=== PATIENT | male | born 1945 | race Caucasian/White ===

== ENCOUNTER → 2017-11-12 | Outpatient (CLI) | payer MEDICARE, OTHER ==
[~2017-11-12] MED LIST: ASP325TEC PO; ASP81CT PO; ASPI-9 PO; ATRV10T PO; CEFU500T5 PO; DIGO0.25 PO; ENAL2.5T PO; FOLI0.4T2 PO; GLUC-136 PO; GLUC-138 PO; LOSA25TA5 PO; LVT.05T PO; MTP25TSR PO; MULT-963 PO; OMG1KC PO; PNT40TEC PO; RIVA20TA2 PO; RNT150T PO; THIA100T12 PO; VITA-185 PO
== END ==
LOC: CARD 11:53
PROVIDERS: ATTEND Physician Assistant
DX: I48.0 Paroxysmal atrial fibrillation (principal); I50.22 Chronic systolic (congestive) heart failure; E78.2 Mixed hyperlipidemia; I49.1 Atrial premature depolarization
CPT/HCPCS: 93306

== ENCOUNTER → 2019-11-20 | Outpatient (CLI) | payer MEDICARE, OTHER ==
--- NOTE | 2019-11-21 13:52 | Diagnostic Imaging Report ---
EXAMINATION: Left hand radiographs, 3 views. Right hand radiographs, 3 views. COMPARISON: None. HISTORY: 74-year-old male, bilateral hand pain. Arthritis. FINDINGS: Left hand: There is severe joint space loss and osteophyte formation at the first carpometacarpal joint as well as at the triscaphe articulation. There is severe radiocarpal joint space loss. There is severe joint space loss and osteophyte formation at the distal radioulnar joint. There is well-corticated ossification in the region of the ulnar styloid, most likely relating to sequela of remote prior trauma. There is incompletely imaged sideplate and screw fixation hardware at the level of the distal radius. There is a chronic appearing deformity of the mid diaphysis of the fifth metacarpal. There is no identified chondrocalcinosis. There is moderate to severe joint space loss with central appearing erosions of the second distal interphalangeal joint. There is adjacent soft tissue swelling. There is no additionally identified bone erosion. Right hand: There is severe joint space loss with osteophyte formation at the first carpometacarpal joint and triscaphe articulation. There are cystic changes within the central aspect of the lunate and less prominent cystic changes in the capitate. There is moderate joint space loss of the second and third metacarpophalangeal joints. There is severe joint space loss at the second distal interphalangeal joint and moderate to severe joint space loss at the third distal interphalangeal joint. There is potentially an early central erosion associated with the right second distal interphalangeal joint. There is no additional identified bone erosion. There is no acute fracture. There is no pronounced radiocarpal joint space loss on the right. IMPRESSION: 1. 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 2. 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 3. Central appearing erosions and severe joint space loss at the left second distal interphalangeal joint and likely earlier findings at the level of the right second distal interphalangeal joint. Erosive osteoarthritis is a differential diagnostic consideration. 4. Additional nonspecific arthritis involving the right third distal interphalangeal joint and second and third metacarpophalangeal joints without identified bone erosion or soft tissue swelling. Dictated by: Dictated on workstation # [id number]
== END ==
LOC: RAD 14:20
PROVIDERS: ATTEND Internal Medicine
DX: M19.042 Primary osteoarthritis, left hand (principal); M19.041 Primary osteoarthritis, right hand